=== PATIENT | female | born 1950 | race Caucasian/White ===

== ENCOUNTER 2016-04-02 11:15 | Inpatient (IN) | payer OTHER ==
[2016-04-02 12:20] LABS: % IMMATURE GRANULYOCYTES 0.5 % (0.0-1.1); ABSOLUTE IMMATURE GRANULOCYTES 0.03 10^3/uL (0.00-0.10); ADD DIFF? NO; ADD MORPH? NO; ADD SCAN? NO; ATYPICAL LYMPHOCYTE FLAG 0 (0-99); FRAGMENT RBC FLAG 10 (0-99); HEMATOCRIT 45.7 % (38.0-47.0); HEMOGLOBIN 15.2 g/dL (12.6-16.3); LEFT SHIFT FLG 0 (0-99); LIPEMIA HEMOLYSIS FLAG 80 (0-99); MEAN CELL HEMOGLOBIN 28.6 pg (27.9-34.1); MEAN CELL HEMOGLOBIN CONCENTR. 33.3 g/dL (32.4-36.7); MEAN CELL VOLUME 85.9 fL (81.5-99.8); MEAN PLATELET VOLUME 9.6 fL (8.7-11.7); PLATELET CLUMPS FLAG 0 (0-99); PLATELET COUNT 237 10^3/uL (150-400); RED BLOOD CELL COUNT 5.32 10^6/uL (4.18-5.33); RED CELL DISTRIBUTION WIDTH 13.5 % (11.5-15.2)
[2016-04-02 12:34] LABS: ANION GAP 10 mEq/L (8-16); CALCIUM 9.7 mg/dL (8.5-10.4); CARBON DIOXIDE 26 mEq/l (22-31); CHLORIDE 109 mEq/L (97-110); CREATININE 0.7 mg/dL (0.6-1.0); GLOMERULAR FILTRATION RATE > 60; GLUCOSE 77 mg/dL (70-100); POTASSIUM 4.7 mEq/L (3.5-5.2); SODIUM 145 mEq/L (134-144)
[2016-04-02 12:38] LABS: INR 0.93 (0.83-1.16); PROTIME(PATIENT) 12.4 SEC (12.0-15.0)
[2016-04-02 12:39] LABS: APTT 26.6 SEC (23.0-38.0)
[2016-04-02] MEDS ORDERED: MIDAZOLAM 2 MG/2 ML VIAL ONE (12:51)
[2016-04-02] MEDS ORDERED: CEFAZOLIN 2 GM/DEXTROSE/100 ML BAG IV ONE (12:52)
[2016-04-02] MEDS ORDERED: PROPOFOL/EMULSION 500 MG/50 ML BOTTLE IV ONE (13:01)
[2016-04-02] MEDS ORDERED: LIDOCAINE 2% 5 ML SDV ONE ×2 (13:03)
[2016-04-02] MEDS ORDERED: SUCCINYLCHOLINE CHLORIDE*ANESTHESIA ONLY*200 MG/10 ML SYR IVP ONE (13:03)
--- NOTE | 2016-04-02 13:17 | CPEKG ---
Heart Rate: 68 RR Interval: 882 P-R Interval: 160 QRSD Interval: 94 QT Interval: 420 QTC Interval: 447 QRS Brodnax: -27 T Wave Brodnax: 19 EKG Severity - ABNORMAL ECG - EKG Impression: ATRIAL-PACED RHYTHM EKG Impression: BORDERLINE LEFT AXIS DEVIATION EKG Impression: BORDERLINE T ABNORMALITIES, ANTERIOR LEADS Electronically Signed By: Luis Marti 02-Apr-2016 16:54:24
[2016-04-02] MEDS ORDERED: fentaNYL 100 MCG/2 ML INJ ONE ×3 (13:29→17:42)
[2016-04-02] MEDS ORDERED: ceFAZolin 2 GM/DEXTROSE 100 ML IV ONE (13:30)
[2016-04-02] MEDS ORDERED: epHEDrine SULFATE 10 MG/ML SYR ONE ×2 (13:58→14:10)
[2016-04-02] MEDS ORDERED: ONDANSETRON 4 MG/2 ML VIAL ONE (14:03)
[2016-04-02] MEDS ORDERED: DEXAMETHASONE 4 MG/ML VIAL ONE ×2 (14:03)
[2016-04-02] MEDS ORDERED: HEPARIN 10,000 UNIT/10 ML MDV ONE (16:36)
[2016-04-02] MEDS ORDERED: IOPAMIDOL (ISOVUE-300) 100 ML BTL IV ONE (16:36)
--- NOTE | 2016-04-02 17:29 | DX ---
AP Portable Chest on April 02, 2016 Indication: Preoperative evaluation. Comparison: November 14, 2014. Findings: Left subclavian pacemaker leads are unchanged. Mild amount of atelectasis or scar in the zac ng bases are unchanged. Lungs are otherwise clear. No developing mass or consolidation. Impression: No acute cardiopulmonary process.
[2016-04-02] MEDS: fentaNYL 100 MCG/2 ML INJ IVP PRN ×3 (18:00→22:13)
[2016-04-02] MEDS ORDERED: fentaNYL 100 MCG/2 ML INJ IVP PRN (18:14)
--- NOTE | 2016-04-02 18:33 | IR ---
Infrarenal Aortic Stent-graft Placement Bilateral Kissing Iliac Stent Placement Indication: High-grade aortic stenosis by plaque. High-grade left iliac stenosis. Bilateral leg pain . Informed consent: Obtained from the patient. Risks and benefits were discussed. Crosscutting Measure: Patient's current list of medications including all known prescriptions, over- the-counters, herbals, and vitamin/mineral/dietary supplements are reviewed. Medications' name, dosa ge, frequency, and route of administration are confirmed. Patient is a non-smoker. Prophylactic Antibiotic: Ancef 2 grams was ordered and administered for antimicrobial prophylaxis. Discontinuation of Prophylactic Antibiotic: Prophylactic antibiotic was given within 4 hours prior t o incision. There was an order to discontinue the antibiotic within 24 hours of procedure end time. VTE Prophylaxis: VTE prophylaxis is not medically necessary for this procedure. Technique: Patient is placed in supine position. A "timeout" procedure was performed to identify the correct patient and the correct procedure. 1% Xylocaine was used for local anesthetic. All elements of maximal sterile barrier technique including cap, mask, sterile gown, sterile gloves, large steril e sheet, hand hygiene, and 2% chlorhexidine for cutaneous antisepsis, followed. When ultrasound is u sed, sterile gel and probe covers are used. Ultrasound evaluation of potential access site was performed. After successfully identifying a patent vessel, ultrasound guidance was used to puncture the vessel. A permanent recording was created for t he patient's record. When ultrasound is used, sterile gel and probe covers are used. Right common femoral artery is accessed under ultrasound guidance at 12 o'clock using micropuncture n eedle. Two Preclose devices were subsequently deployed, one at 10 o'clock, one at 2 o'clock. Left common femoral artery was then accessed under ultrasound guidance using a micropuncture needle, followed by [place] wire and micropuncture sheath. 0.035 wire is advanced. 6-Danish vascular sheath is a dvanced. Difficulties are encountered at the aortic plaque and the left iliac plaque, respectively, in terms o f advancing wires. 12-Danish sheath is advanced on the right without difficulty. Bentson wire was able to be advanced ac ross the plaque into supra-abdominal aorta. Multisidehole pigtail catheter is advanced. Aortogram is performed, showing the high-grade stenosis in the midabdominal aorta, and a moderate to high-grade st enosis at the left proximal common iliac artery. The sheath, 12-Danish, on the right, is essentially occlusive. The pigtail catheter is removed over Lunderquist wire. Over Glidewire and Glidecatheter, contralatera l limb is accessed. The 12-Danish right-sided sheath is exchanged for a 16-Danish sheath advanced to upper external iliac artery. A 20 x 20 x 82 mm aortic tube graft is chosen. This is loaded, and easily advanced across aortic sten osis, and subsequently deployed along the infrarenal aorta. Post deployment angioplasty is performed using Reliant balloon. Next, bilateral atrium stents are loaded, 9 x 38 mm on the left, 8 x 38 mm on the right. Both stents are deployed simultaneously over insufflator. Pigtail is placed back up into abdominal aorta, and com pletion angiogram is performed in multiple projections. This shows satisfactory opening of the aortic stenosis as well as the left proximal iliac stenosis. The Precloses on the right maintain hemostasis fairly easily. The left groin access is closed by Star Close device, and there is a hematoma at the end of that on the left. Patient tolerated the procedure well. Fluoroscopy: 8.4 minutes, 14 images. Medication: General anesthesia. Impression: 1. Aortic tube graft placed into infrarenal aorta, opening the tight aortic stenosis. 2. Bilateral iliac kissing stent placement as above, resolving the left common iliac stenosis. 3. Bounding 2+ dorsalis pedis pulses after the case. Plan: Overnight ICU monitor.
--- NOTE | 2016-04-02 18:33 | IR ---
Infrarenal Aortic Stent-graft Placement Bilateral Kissing Iliac Stent Placement Indication: High-grade aortic stenosis by plaque. High-grade left iliac stenosis. Bilateral leg pain . Informed consent: Obtained from the patient. Risks and benefits were discussed. Crosscutting Measure: Patient's current list of medications including all known prescriptions, over- the-counters, herbals, and vitamin/mineral/dietary supplements are reviewed. Medications' name, dosa ge, frequency, and route of administration are confirmed. Patient is a non-smoker. Prophylactic Antibiotic: Ancef 2 grams was ordered and administered for antimicrobial prophylaxis. Discontinuation of Prophylactic Antibiotic: Prophylactic antibiotic was given within 4 hours prior t o incision. There was an order to discontinue the antibiotic within 24 hours of procedure end time. VTE Prophylaxis: VTE prophylaxis is not medically necessary for this procedure. Technique: Patient is placed in supine position. A "timeout" procedure was performed to identify the correct patient and the correct procedure. 1% Xylocaine was used for local anesthetic. All elements of maximal sterile barrier technique including cap, mask, sterile gown, sterile gloves, large steril e sheet, hand hygiene, and 2% chlorhexidine for cutaneous antisepsis, followed. When ultrasound is u sed, sterile gel and probe covers are used. Ultrasound evaluation of potential access site was performed. After successfully identifying a patent vessel, ultrasound guidance was used to puncture the vessel. A permanent recording was created for t he patient's record. When ultrasound is used, sterile gel and probe covers are used. Right common femoral artery is accessed under ultrasound guidance at 12 o'clock using micropuncture n eedle. Two Preclose devices were subsequently deployed, one at 10 o'clock, one at 2 o'clock. Left common femoral artery was then accessed under ultrasound guidance using a micropuncture needle, followed by Justin wire and micropuncture sheath. 0.035 wire is advanced. 6-Samoan vascular sheath is a dvanced. Difficulties are encountered at the aortic plaque and the left iliac plaque, respectively, in terms o f advancing wires. 12-Samoan sheath is advanced on the right without difficulty. Bentson wire was able to be advanced ac ross the plaque into supra-abdominal aorta. Multisidehole pigtail catheter is advanced. Aortogram is performed, showing the high-grade stenosis in the midabdominal aorta, and a moderate to high-grade st enosis at the left proximal common iliac artery. The sheath, 12-Samoan, on the right, is essentially occlusive. The pigtail catheter is removed over Lunderquist wire. Over Glidewire and Glidecatheter, contralatera l limb is accessed. The 12-Samoan right-sided sheath is exchanged for a 16-Samoan sheath advanced to upper external iliac artery. A 20 x 20 x 82 mm aortic tube graft is chosen. This is loaded, and easily advanced across aortic sten osis, and subsequently deployed along the infrarenal aorta. Post deployment angioplasty is performed using Reliant balloon. Next, bilateral atrium stents are loaded, 9 x 38 mm on the left, 8 x 38 mm on the right. Both stents are deployed simultaneously over insufflator. Pigtail is placed back up into abdominal aorta, and com pletion angiogram is performed in multiple projections. This shows satisfactory opening of the aortic stenosis as well as the left proximal iliac stenosis. The Precloses on the right maintain hemostasis fairly easily. The left groin access is closed by Star Close device, and there is a hematoma at the end of that on the left. Patient tolerated the procedure well. Fluoroscopy: 8.4 minutes, 14 images. Medication: General anesthesia. Impression: 1. Aortic tube graft placed into infrarenal aorta, opening the tight aortic stenosis. 2. Bilateral iliac kissing stent placement as above, resolving the left common iliac stenosis. 3. Bounding 2+ dorsalis pedis pulses after the case. Plan: Overnight ICU monitor.
--- NOTE | 2016-04-02 18:33 | IR ---
Infrarenal Aortic Stent-graft Placement Bilateral Kissing Iliac Stent Placement Indication: High-grade aortic stenosis by plaque. High-grade left iliac stenosis. Bilateral leg pain . Informed consent: Obtained from the patient. Risks and benefits were discussed. Crosscutting Measure: Patient's current list of medications including all known prescriptions, over- the-counters, herbals, and vitamin/mineral/dietary supplements are reviewed. Medications' name, dosa ge, frequency, and route of administration are confirmed. Patient is a non-smoker. Prophylactic Antibiotic: Ancef 2 grams was ordered and administered for antimicrobial prophylaxis. Discontinuation of Prophylactic Antibiotic: Prophylactic antibiotic was given within 4 hours prior t o incision. There was an order to discontinue the antibiotic within 24 hours of procedure end time. VTE Prophylaxis: VTE prophylaxis is not medically necessary for this procedure. Technique: Patient is placed in supine position. A "timeout" procedure was performed to identify the correct patient and the correct procedure. 1% Xylocaine was used for local anesthetic. All elements of maximal sterile barrier technique including cap, mask, sterile gown, sterile gloves, large steril e sheet, hand hygiene, and 2% chlorhexidine for cutaneous antisepsis, followed. When ultrasound is u sed, sterile gel and probe covers are used. Ultrasound evaluation of potential access site was performed. After successfully identifying a patent vessel, ultrasound guidance was used to puncture the vessel. A permanent recording was created for t he patient's record. When ultrasound is used, sterile gel and probe covers are used. Right common femoral artery is accessed under ultrasound guidance at 12 o'clock using micropuncture n eedle. Two Preclose devices were subsequently deployed, one at 10 o'clock, one at 2 o'clock. Left common femoral artery was then accessed under ultrasound guidance using a micropuncture needle, followed by [place] wire and micropuncture sheath. 0.035 wire is advanced. 6-Dominican vascular sheath is a dvanced. Difficulties are encountered at the aortic plaque and the left iliac plaque, respectively, in terms o f advancing wires. 12-Dominican sheath is advanced on the right without difficulty. Bentson wire was able to be advanced ac ross the plaque into supra-abdominal aorta. Multisidehole pigtail catheter is advanced. Aortogram is performed, showing the high-grade stenosis in the midabdominal aorta, and a moderate to high-grade st enosis at the left proximal common iliac artery. The sheath, 12-Dominican, on the right, is essentially occlusive. The pigtail catheter is removed over Lunderquist wire. Over Glidewire and Glidecatheter, contralatera l limb is accessed. The 12-Dominican right-sided sheath is exchanged for a 16-Dominican sheath advanced to upper external iliac artery. A 20 x 20 x 82 mm aortic tube graft is chosen. This is loaded, and easily advanced across aortic sten osis, and subsequently deployed along the infrarenal aorta. Post deployment angioplasty is performed using Reliant balloon. Next, bilateral atrium stents are loaded, 9 x 38 mm on the left, 8 x 38 mm on the right. Both stents are deployed simultaneously over insufflator. Pigtail is placed back up into abdominal aorta, and com pletion angiogram is performed in multiple projections. This shows satisfactory opening of the aortic stenosis as well as the left proximal iliac stenosis. The Precloses on the right maintain hemostasis fairly easily. The left groin access is closed by Star Close device, and there is a hematoma at the end of that on the left. Patient tolerated the procedure well. Fluoroscopy: 8.4 minutes, 14 images. Medication: General anesthesia. Impression: 1. Aortic tube graft placed into infrarenal aorta, opening the tight aortic stenosis. 2. Bilateral iliac kissing stent placement as above, resolving the left common iliac stenosis. 3. Bounding 2+ dorsalis pedis pulses after the case. Plan: Overnight ICU monitor.
[2016-04-02] MEDS: NS 1,000 ML IV SCH (18:52)
[2016-04-02] MEDS: oxyCODONE IR 5 MG TAB PO PRN (19:00)
[2016-04-02 19:43] LABS: HEMATOCRIT 42.5 % (38.0-47.0); HEMOGLOBIN 13.6 g/dL (12.6-16.3)
[2016-04-02 23:34] LABS: HEMATOCRIT 40.9 % (38.0-47.0); HEMOGLOBIN 13.2 g/dL (12.6-16.3)
[2016-04-03] MEDS: oxyCODONE IR 5 MG TAB PO PRN ×2 (00:33→18:15)
[2016-04-03] MEDS: NS 1,000 ML IV SCH (05:53)
[2016-04-03 06:06] LABS: HEMATOCRIT 38.6 % (38.0-47.0); HEMOGLOBIN 12.4 g/dL (12.6-16.3)
[2016-04-03] MEDS: fentaNYL 100 MCG/2 ML INJ IVP PRN ×3 (08:06→13:44)
[2016-04-03] MEDS ORDERED: NON-FORMULARY NEW DRUG (Rosuvastatin Calcium [Crestor 5mg] 5 MG) PO SCH (09:00)
[2016-04-03 10:12] LABS: HEMATOCRIT 36.6 % (38.0-47.0); HEMOGLOBIN 12.3 g/dL (12.6-16.3)
[2016-04-03] MEDS: ASPIRIN 81 MG CHEWABLE TAB PO SCH (10:49)
[2016-04-03] MEDS: METOPROLOL SUCCINATE XR 25 MG TAB PO SCH (10:49)
[2016-04-03] MEDS: ROSUVASTATIN CALCIUM 10 MG TAB PO SCH (10:50)
--- NOTE | 2016-04-03 11:20 | SOAPPROG ---
SOAP Progress Note Assessment/Plan: Assessment: S/P tube graft repair of tight aortic stenosis, and kissing stenting of iliac arteries for critical LT DEVI stenosis. High LT groin stick because of very high biforcation, at risk for retroperitoneal bleed. Plan: 1. Serial H/H 2. NCCT abd/pel tonight. 3. Fem stop on LT groin. 4. D/W family and patient. 04/03/16 11:08 Subjective: Back pain. Hematoma at LT groin. Relieved that procedure o/w went well. Objective: Vital Signs Temp Pulse Resp BP Pulse Ox 36.8 C 77 11 L 117/55 L 94 04/03/16 08:00 04/03/16 11:00 04/03/16 11:00 04/03/16 11:00 04/03/16 11:00 Laboratory Results 04/03/16 10:06 04/02/16 12:00 04/02/16 04/03/16 04/04/16 05:59 05:59 05:59 Intake Total 1339 Output Total 750 Balance 589 PT 12.4 SEC (12.0-15.0) 04/02/16 12:00 INR 0.93 (0.83-1.16) 04/02/16 12:00 2+ bounding pedal pulses. LT groin hematoma not externally visible or significantly palpable, but HCT decreasing. RT groin clean. ICD10 Worksheet Patient Problems: Problems Problem Status Diagnosed Iliac artery bleed, left Acute Iliac artery stenosis, left Acute Stenosis of infrarenal abdominal aorta due to arteriosclerosis Acute - ICD10 Problem Qualifiers (1) Stenosis of infrarenal abdominal aorta due to arteriosclerosis (2) Iliac artery stenosis, left (3) Iliac artery bleed, left
--- NOTE | 2016-04-03 11:26 | SOAPPROG ---
SOAP Progress Note Assessment/Plan: Assessment: S/P tube graft repair of tight aortic stenosis, and kissing stenting of iliac arteries for critical LT DEVI stenosis. High LT groin stick because of very high biforcation, at risk for retroperitoneal bleed. Plan: 1. Serial H/H 2. NCCT abd/pel tonight. 3. Fem stop on LT groin. 4. D/W family and patient. 04/03/16 11:08 04/03/16 11:24 1. Tightened up femstop 2. Patient likely will have more pain because of the above. 3. Likely will take patient back to IR to angio LT FA; covered stent if needed. 4. NPO this am. 5. Discussed with Dr. Perales. May need to do radial approach. Subjective: Fem stop loose on groin. 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 Objective: Vital Signs Temp Pulse Resp BP Pulse Ox 36.8 C 77 11 L 117/55 L 94 04/03/16 08:00 04/03/16 11:00 04/03/16 11:00 04/03/16 11:00 04/03/16 11:00 Laboratory Results 04/03/16 10:06 04/02/16 12:00 04/02/16 04/03/16 04/04/16 05:59 05:59 05:59 Intake Total 1339 Output Total 750 Balance 589 PT 12.4 SEC (12.0-15.0) 04/02/16 12:00 INR 0.93 (0.83-1.16) 04/02/16 12:00 LT groin very tender to touch, but loose fem stop not really clinically beneficial. Serial H/H noted. Pulses unchanged. CT shows some retroperitoneal bleed tracking laterally up the abd. Vitals stable. ICD10 Worksheet Patient Problems: Problems Problem Status Diagnosed Iliac artery bleed, left Acute Iliac artery stenosis, left Acute Stenosis of infrarenal abdominal aorta due to arteriosclerosis Acute - ICD10 Problem Qualifiers (1) Stenosis of infrarenal abdominal aorta due to arteriosclerosis (2) Iliac artery stenosis, left (3) Iliac artery bleed, left
--- NOTE | 2016-04-03 11:34 | SOAPPROG ---
SOAP Progress Note Assessment/Plan: Assessment: S/P tube graft repair of tight aortic stenosis, and kissing stenting of iliac arteries for critical LT DEVI stenosis. High LT groin stick because of very high biforcation, at risk for retroperitoneal bleed. Plan: 1. Serial H/H 2. NCCT abd/pel tonight. 3. Fem stop on LT groin. 4. D/W family and patient. 04/03/16 11:08 04/03/16 11:24 1. Tightened up femstop 2. Patient likely will have more pain because of the above. 3. Likely will take patient back to IR to angio LT FA; covered stent if needed. 4. NPO this am. 5. Discussed with Dr. Perales. May need to do radial approach. 04/03/16 11:[address] Perales. Patient likely equilibrating. 2. Will continue with serial H/H, but will hold off taking back to angio. 3. Abd pain likely duel to shifting fem stop, now with increased pressure. Pain control to keep patient comfortable. 4. Will keep femstop on till next hct check. 04/03/16 11:35 Subjective: Increasing abd pain. No change in vitals. Objective: Vital Signs Temp Pulse Resp BP Pulse Ox 36.8 C 77 11 L 117/55 L 94 04/03/16 08:00 04/03/16 11:00 04/03/16 11:00 04/03/16 11:00 04/03/16 11:00 Laboratory Results 04/03/16 10:06 04/02/16 12:00 04/02/16 04/03/16 04/04/16 05:59 05:59 05:59 Intake Total 1339 Output Total 750 Balance 589 PT 12.4 SEC (12.0-15.0) 04/02/16 12:00 INR 0.93 (0.83-1.16) 04/02/16 12:00 Continued slow drop in Hct, but Hgb relatively stable. New CT obtained, showing if anything improved amount of bleed. ICD10 Worksheet Patient Problems: Problems Problem Status Diagnosed Iliac artery bleed, left Acute Iliac artery stenosis, left Acute Stenosis of infrarenal abdominal aorta due to arteriosclerosis Acute - ICD10 Problem Qualifiers (1) Stenosis of infrarenal abdominal aorta due to arteriosclerosis (2) Iliac artery stenosis, left (3) Iliac artery bleed, left
[2016-04-03 14:14] LABS: HEMATOCRIT 36.1 % (38.0-47.0); HEMOGLOBIN 11.7 g/dL (12.6-16.3)
--- NOTE | 2016-04-03 15:23 | SOAPPROG ---
SOAP Progress Note Assessment/Plan: Assessment: S/P tube graft repair of tight aortic stenosis, and kissing stenting of iliac arteries for critical LT DEVI stenosis. High LT groin stick because of very high biforcation, at risk for retroperitoneal bleed. Plan: 1. Serial H/H 2. NCCT abd/pel tonight. 3. Fem stop on LT groin. 4. D/W family and patient. 04/03/16 11:08 04/03/16 11:24 1. Tightened up femstop 2. Patient likely will have more pain because of the above. 3. Likely will take patient back to IR to angio LT FA; covered stent if needed. 4. NPO this am. 5. Discussed with Dr. Perales. May need to do radial approach. 04/03/16 11:[address] Perales. Patient likely equilibrating. 2. Will continue with serial H/H, but will hold off taking back to angio. 3. Abd pain likely duel to shifting fem stop, now with increased pressure. Pain control to keep patient comfortable. 4. Will keep femstop on till next hct check. 04/03/16 11:35 04/03/16 15:23 DC femstop. OOB as tolerated. Subjective: No change clinically. Objective: Vital Signs Temp Pulse Resp BP Pulse Ox 36.8 C 74 12 110/57 L 96 04/03/16 13:00 04/03/16 14:00 04/03/16 14:00 04/03/16 14:00 04/03/16 14:00 Laboratory Results 04/03/16 13:50 04/02/16 12:00 04/02/16 04/03/16 04/04/16 05:59 05:59 05:59 Intake Total 1339 Output Total 750 Balance 589 PT 12.4 SEC (12.0-15.0) 04/02/16 12:00 INR 0.93 (0.83-1.16) 04/02/16 12:00 ICD10 Worksheet Patient Problems: Problems Problem Status Diagnosed Iliac artery bleed, left Acute Iliac artery stenosis, left Acute Stenosis of infrarenal abdominal aorta due to arteriosclerosis Acute - ICD10 Problem Qualifiers (1) Stenosis of infrarenal abdominal aorta due to arteriosclerosis (2) Iliac artery stenosis, left (3) Iliac artery bleed, left
--- NOTE | 2016-04-03 15:31 | CT ---
CT Scan of the Abdomen and Pelvis (Without IV Contrast) Clinical Indications: Continued decreasing hematocrit. Now complaining of abdominal pain. Comparison: CT scan April 02, 2016, 4 hour Technique: No intravenous contrast was given. Multidetector helical CT imaging is performed from th e diaphragm to the symphysis pubis. Dose reduction techniques were utilized. Findings: The FemoStop is now pressurized in the left lower quadrant. The amount of hematoma is not increased. There is change in location, from more of a pair pubic area, down into the labial region, rather than the left para iliac region. There is no further extension north in the retroperitoneum. The stent-graft is otherwise unchanged. There is contrast in the gallbladder from the procedure. Rest of the scan is unchanged. Impression: If anything, the amount of hematoma may have been improved. Attention: This examination does not use radiographic contrast, and as such, provides only a limite d evaluation of the abdomen, pelvis, and retroperitoneum. If there is further clinical suspicion for pathological conditions, a complete CT evaluation of the abdomen and pelvis utilizing intravenous, o ral, and rectal contrast should be considered.
--- NOTE | 2016-04-03 15:39 | CT ---
CT Scan of the Abdomen and Pelvis (Without IV Contrast) Clinical Indications: Hematoma at the left groin. Rule out retroperitoneal bleed. Technique: No intravenous contrast was given. Multidetector helical CT imaging is performed from th e diaphragm to the symphysis pubis. Dose reduction techniques were utilized. Findings: There is indeed a retroperitoneal hematoma dissecting from the left inguinal area downward s towards the pubic area, and upwards towards the flank. It is consistent with the amount of droppin g hematocrit. Hsu catheter is in good position. The stent-graft and the iliac limbs are in good p osition, patent, without kink or compression from a noncontrast evaluation standpoint. Multiple diverticula at the descending colon and sigmoid colon are noted. The patient has bilateral atelectasis. Cardiac pacemaker leads are noted. No ascites or pleural effusion. Impressions 1. Left retroperitoneal hematoma consistent with dropping hematocrit. It is mild to moderate. 2. Bilateral atelectasis.
[2016-04-03 17:30] LABS: HEMATOCRIT 35.9 % (38.0-47.0); HEMOGLOBIN 11.6 g/dL (12.6-16.3); MEAN CELL HEMOGLOBIN 28.5 pg (27.9-34.1); MEAN CELL HEMOGLOBIN CONCENTR. 32.3 g/dL (32.4-36.7); MEAN CELL VOLUME 88.2 fL (81.5-99.8); RED BLOOD CELL COUNT 4.07 10^6/uL (4.18-5.33); RED CELL DISTRIBUTION WIDTH 13.7 % (11.5-15.2)
[2016-04-03 17:52] LABS: ANION GAP 8 mEq/L (8-16); CARBON DIOXIDE 27 mEq/l (22-31); CHLORIDE 104 mEq/L (97-110); CREATININE 0.7 mg/dL (0.6-1.0); GLOMERULAR FILTRATION RATE > 60; GLUCOSE 135 mg/dL (70-100); POTASSIUM 4.3 mEq/L (3.5-5.2); SODIUM 139 mEq/L (134-144)
--- NOTE | 2016-04-03 18:37 | GCON ---
[f rep st] CONSULTATION CRITICAL CARE CONSULTATION DATE OF CONSULTATION: 04/03/2016 REASON FOR CONSULTATION: Intensive care unit evaluation in management following aortic stenting. HISTORY: The patient is a very pleasant 65-year-old, who was admitted yesterday for aortic stent and iliac stent placement for stenosis. This was done by Dr. Hanna. Her course has been complicated by a retroperitoneal bleed. She has had some pain related to this in the left back. Hematocrit has drop ped from 42 on admission to 36 currently. However, she is doing well. The pain is less. She compla ins of some numbness of the skin on the right leg from the hip to the knee laterally. She has a mild cough. PAST MEDICAL HISTORY: It is remarkable for chronic obstructive pulmonary disease, peripheral vascula r disease, and a pacemaker. MEDICATIONS ON ADMISSION: Calcitonin, gabapentin, aspirin, metoprolol, Crestor, and p.r.n. medicatio ns. SOCIAL HISTORY: The patient smoked cigarettes in the past. Significant alcohol is denied. She live s with her brother and helps care for him. He is in a wheelchair. DRUG ALLERGIES: Naproxen, sulfa, levofloxacin. FAMILY HISTORY: Noncontributory. REVIEW OF SYSTEMS: Ten-point review of systems negative, except as outlined above. PHYSICAL EXAMINATION: GENERAL: Reveals a pleasant woman, who is in no apparent distress. VITAL SIG NS: Blood pressure is 101/62, heart rate 77 with sinus rhythm on the monitor, respiratory rate is 14 , on 4 L of oxygen saturations are 95%. She is afebrile. HEENT: Unremarkable for lymphadenopathy o r thyromegaly. There is no jugular venous distention. CHEST: Clear. Breath sounds are diminished. HEART: Regular in rate and rhythm. There is a soft systolic murmur. No gallops are appreciated. P2 appears normal. ABDOMEN: Mildly distended and nontender. Bowel sounds are diminished, but pres ent. A Hsu catheter is in place with adequate urine output. NEUROLOGIC: Nonfocal. There is some subjective numbness in a dermatomal distribution over the lateral right upper extremity from the hip to the knee. She is oriented, appropriate. DATA REVIEWED: White blood cell count is 12,900, hematocrit 35.9. PT and PTT yesterday were normal. Basic metabolic panel is within normal limits. ASSESSMENT: 1. Status post aortic and femoral stents placed by Interventional Radiology. 2. Retroperitoneal hematoma. 3. Acute blood-loss anemia, mild so far. Hematocrit is being followed. No blood has been required. She is typed and crossed. 4. History of chronic obstructive pulmonary disease, on albuterol and Spiriva at home. No evidence of an exacerbation or significant problems at this time. PLAN: The patient will be kept in the intensive care unit. Serial hematocrits are being followed. Adequate pain control will be maintained. Her usual outpatient medications will be continued. Further plans and recommendations will be made based on her progress over the next 12-24 hours. /[id number]/MODL
[2016-04-03 22:05] LABS: HEMATOCRIT 34.5 % (38.0-47.0); HEMOGLOBIN 11.2 g/dL (12.6-16.3)
[2016-04-03] MEDS ORDERED: BISACODYL 10 MG SUPP PR PRN (22:19)
[2016-04-03] MEDS ORDERED: MAGNESIUM HYDROXIDE 30 ML UDCUP PO PRN (22:19)
[2016-04-03] MEDS ORDERED: POLYETHYLENE GLYCOL 3350 17 GM PKT PO PRN (22:19)
[2016-04-03] MEDS: SENNOSIDES/DOCUSATE SODIUM TAB PO SCH (22:29)
[2016-04-03] MEDS: ZOLPIDEM TARTRATE 5 MG TAB PO PRN (22:29)
[2016-04-04] MEDS: oxyCODONE IR 5 MG TAB PO PRN ×2 (00:07→20:51)
[2016-04-04 06:35] LABS: % IMMATURE GRANULYOCYTES 0.4 % (0.0-1.1); ABSOLUTE IMMATURE GRANULOCYTES 0.04 10^3/uL (0.00-0.10); ADD DIFF? NO; ADD MORPH? NO; ADD SCAN? NO; ATYPICAL LYMPHOCYTE FLAG 0 (0-99); FRAGMENT RBC FLAG 0 (0-99); HEMOGLOBIN 10.7 g/dL (12.6-16.3); LEFT SHIFT FLG 0 (0-99); LIPEMIA HEMOLYSIS FLAG 80 (0-99); MEAN CELL HEMOGLOBIN 28.9 pg (27.9-34.1); MEAN CELL HEMOGLOBIN CONCENTR. 32.4 g/dL (32.4-36.7); MEAN CELL VOLUME 89.2 fL (81.5-99.8); MEAN PLATELET VOLUME 9.8 fL (8.7-11.7); PLATELET CLUMPS FLAG 10 (0-99); PLATELET COUNT 168 10^3/uL (150-400)
[2016-04-04 07:06] LABS: ANION GAP 7 mEq/L (8-16); CARBON DIOXIDE 28 mEq/l (22-31); CHLORIDE 106 mEq/L (97-110); CREATININE 0.7 mg/dL (0.6-1.0); GLOMERULAR FILTRATION RATE > 60; GLUCOSE 98 mg/dL (70-100); POTASSIUM 4.2 mEq/L (3.5-5.2); SODIUM 141 mEq/L (134-144)
--- NOTE | 2016-04-04 09:45 | SOAPPROG ---
SOAP Progress Note Assessment/Plan: Assessment: S/P tube graft repair of tight aortic stenosis, and kissing stenting of iliac arteries for critical LT DEVI stenosis. High LT groin stick because of very high biforcation, at risk for retroperitoneal bleed. Plan: 1. Serial H/H 2. NCCT abd/pel tonight. 3. Fem stop on LT groin. 4. D/W family and patient. 04/03/16 11:08 04/03/16 11:24 1. Tightened up femstop 2. Patient likely will have more pain because of the above. 3. Likely will take patient back to IR to angio LT FA; covered stent if needed. 4. NPO this am. 5. Discussed with Dr. Perales. May need to do radial approach. 04/03/16 11:[address] Perales. Patient likely equilibrating. 2. Will continue with serial H/H, but will hold off taking back to angio. 3. Abd pain likely duel to shifting fem stop, now with increased pressure. Pain control to keep patient comfortable. 4. Will keep femstop on till next hct check. 04/03/16 11:35 04/03/16 15:23 DC femstop. OOB as tolerated. 04/04/16 09:[address] Thomas and Dr. Perales this AM. Consensus is to continue to watch. I also discussed the case with Dr. Ang, in case an angiogram is needed. Agree with the fact that the bleed is slow enough that the angiogram likely will be negative. We would only be looking for signs of intimal damage rather than active bleeding to direct covered stent placement. Appreciate Dr. Perales and Dr. Thomas's input. Discussed in detail with patient, who expressed understanding. Subjective: No change in pain in abd. C/O new onset mid sternal chest pain. Has been ambulating. Patient does not want fem-stop if at all possible. Objective: Vital Signs Temp Pulse Resp BP Pulse Ox 37.4 C 85 20 86/38 L 93 04/04/16 07:49 04/04/16 07:49 04/04/16 07:49 04/04/16 07:49 04/04/16 07:49 Laboratory Results 04/04/16 06:25 04/04/16 06:25 04/03/16 04/04/16 04/05/16 05:59 05:59 05:59 Intake Total 1339 1742 Output Total 750 1800 Balance 589 -58 PT 12.4 SEC (12.0-15.0) 04/02/16 12:00 INR 0.93 (0.83-1.16) 04/02/16 12:00 Bruise present at LT groin. Continued slow decrease in H/H noted. ICD10 Worksheet Patient Problems: Problems Problem Status Diagnosed Iliac artery bleed, left Acute Iliac artery stenosis, left Acute Stenosis of infrarenal abdominal aorta due to arteriosclerosis Acute - ICD10 Problem Qualifiers (1) Stenosis of infrarenal abdominal aorta due to arteriosclerosis (2) Iliac artery stenosis, left (3) Iliac artery bleed, left
[2016-04-04] MEDS: fentaNYL 100 MCG/2 ML INJ IVP PRN (09:51)
--- NOTE | 2016-04-04 10:18 | CPEKG ---
Heart Rate: 77 RR Interval: 779 P-R Interval: 140 QRSD Interval: 96 QT Interval: 360 QTC Interval: 408 QRS [place]: 4 T Wave [place]: 28 EKG Severity - ABNORMAL ECG - EKG Impression: ATRIAL-PACED RHYTHM EKG Impression: non-specific mild ST depression in anterior-lateral leads. Electronically Signed By: Luis Marti 04-Apr-2016 17:42:59
--- NOTE | 2016-04-04 10:29 | DX ---
AP Upright Portable Chest April 04, 2016 Clinical Indication: Chest pain and shortness of breath. Comparison: April 02, 2016. Findings: A dual-lead pacer is unchanged in position. There are some increasing atelectatic or consol idative changes at both bases. Heart size remains normal. Bones are grossly unremarkable. Impression: Increasing bibasilar atelectatic change or consolidation.
[2016-04-04] MEDS: METOPROLOL SUCCINATE XR 25 MG TAB PO SCH (11:13)
[2016-04-04] MEDS: ASPIRIN 81 MG CHEWABLE TAB PO SCH (11:13)
[2016-04-04] MEDS: ROSUVASTATIN CALCIUM 10 MG TAB PO SCH (11:13)
[2016-04-04] MEDS: SENNOSIDES/DOCUSATE SODIUM TAB PO SCH ×2 (11:14→20:50)
[2016-04-04] MEDS: NS 1,000 ML IV SCH (12:39)
[2016-04-04 14:24] LABS: HEMATOCRIT 33.8 % (38.0-47.0); HEMOGLOBIN 10.8 g/dL (12.6-16.3)
--- NOTE | 2016-04-04 16:02 | PDINTPN ---
Wire Stretcher Progress Note Assessment/Plan: Assessment: Status post aortic/left iliac stenting. Doing well. Good pulses and perfusion of the lower extremities. Retroperitoneal bleed. Appear stable. Acute blood-loss anemia. This afternoon's hematocrit is slightly better. Doubt significant ongoing bleeding. Discussed with Dr. Hanna. No plans on further studies at this time. COPD: Stable. No significant congestion or wheezing. Chest pain: Likely secondary to upper abdominal issues as epigastric tenderness seems to duplicate her pain. Metabolic: No issues identified. DVT prophylaxis: SCDs, ambulating, aspirin Plan: Continue observation in the intensive care unit. Continue present therapies. Can change status to step-down. Follow hematocrit. Subjective: Doing okay. Up in the chair. Still has some back pain. Breathing okay. Some anterior lower chest discomfort and some mild congestion. Objective: Vital Signs Temp Pulse Resp BP Pulse Ox 37 C 79 20 105/54 L 93 04/04/16 12:00 04/04/16 14:00 04/04/16 14:00 04/04/16 14:00 04/04/16 14:00 Laboratory Results 04/04/16 14:15 04/04/16 06:25 04/03/16 04/04/16 04/05/16 05:59 05:59 05:59 Intake Total 1339 1742 Output Total 750 1800 650 Balance 589 -58 -650 PT 12.4 SEC (12.0-15.0) 04/02/16 12:00 INR 0.93 (0.83-1.16) 04/02/16 12:00 Physical Exam - Physical Exam General Appearance: alert, no apparent distress EENT: other (Nasal cannula at 3-4 L.) Neck: normal inspection Respiratory: lungs clear (Somewhat coarse), decreased breath sounds (At bases), No rhonchi, No wheezing Cardiac/Chest: regular rate, rhythm, No gallop Abdomen: normal bowel sounds, soft, No non-tender (Tenderness in epigastric area seems to duplicate her chest pain.) Pelvic Exam: other (Hsu catheter out. Adequate urine output.) Skin: normal color, warm/dry Extremities: No pedal edema Neuro/Psych: no motor/sensory deficits, sensory deficit (Mild, right leg as previously noted), No cognition abnormalities ICD10 Worksheet Patient Problems: Problems Problem Status Diagnosed Iliac artery bleed, left Acute Iliac artery stenosis, left Acute Stenosis of infrarenal abdominal aorta due to arteriosclerosis Acute
[2016-04-04] MEDS: ZOLPIDEM TARTRATE 5 MG TAB PO PRN (23:30)
[2016-04-05 05:28] LABS: HEMATOCRIT 31.4 % (38.0-47.0); MEAN CELL HEMOGLOBIN 28.8 pg (27.9-34.1); MEAN CELL HEMOGLOBIN CONCENTR. 31.8 g/dL (32.4-36.7); MEAN CELL VOLUME 90.5 fL (81.5-99.8); RED BLOOD CELL COUNT 3.47 10^6/uL (4.18-5.33)
[2016-04-05] MEDS: SENNOSIDES/DOCUSATE SODIUM TAB PO SCH ×2 (08:46→20:42)
[2016-04-05] MEDS: ASPIRIN 81 MG CHEWABLE TAB PO SCH (08:46)
[2016-04-05] MEDS: ROSUVASTATIN CALCIUM 10 MG TAB PO SCH (08:46)
[2016-04-05] MEDS: METOPROLOL SUCCINATE XR 25 MG TAB PO SCH (08:46)
[2016-04-05] MEDS: oxyCODONE IR 5 MG TAB PO PRN ×2 (11:17→20:26)
[2016-04-05] MEDS: FERROUS SULFATE 325 MG TAB PO SCH ×2 (11:18→20:43)
--- NOTE | 2016-04-05 15:51 | PDINTPN ---
Host Coordinator Progress Note Assessment/Plan: Assessment: Status post aortic/left iliac stenting. Doing well. Good pulses and perfusion of the lower extremities. Retroperitoneal bleed. Appear stable. Acute blood-loss anemia. Hematocrit is slightly down today: 31.4, probably secondary to a equilibration. Doubt ongoing bleeding. No plans on further studies at this time. COPD: Stable. No significant congestion or wheezing. Chest pain: Likely secondary to upper abdominal issues as epigastric tenderness seems to duplicate her pain. Metabolic: No issues identified. DVT prophylaxis: SCDs, ambulating, aspirin Plan: Continue observation in the intensive care unit. Continue present therapies. Follow hematocrit. Subjective: Doing well. Persistent mild left groin/flank pain. Denies shortness of breath Objective: Vital Signs Temp Pulse Resp BP Pulse Ox 36.9 C 71 20 100/50 L 96 04/05/16 12:00 04/05/16 12:00 04/05/16 12:00 04/05/16 12:00 04/05/16 12:00 Laboratory Results 04/05/16 05:10 04/04/16 06:25 04/04/16 04/05/16 04/06/16 05:59 05:59 05:59 Intake Total 1742 1289 Output Total 1800 1400 Balance -58 -111 PT 12.4 SEC (12.0-15.0) 04/02/16 12:00 INR 0.93 (0.83-1.16) 04/02/16 12:00 Physical Exam - Physical Exam General Appearance: alert, no apparent distress EENT: other (Nasal cannula 4 L) Neck: normal inspection Respiratory: lungs clear, decreased breath sounds (At bases), rales (Few basilar rales, improve with the breast), No rhonchi, No wheezing Cardiac/Chest: regular rate, rhythm (Paced) Abdomen: non-tender (Mild epigastric tenderness), soft, No normal bowel sounds ( Decreased, present) Pelvic Exam: other (Hsu catheter removed) Skin: normal color, warm/dry Lymphatic: no adenopathy Extremities: other (Good pulses lower extremities, good color), No pedal edema Neuro/Psych: no motor/sensory deficits, No cognition abnormalities ICD10 Worksheet Patient Problems: Problems Problem Status Diagnosed Iliac artery bleed, left Acute Iliac artery stenosis, left Acute Stenosis of infrarenal abdominal aorta due to arteriosclerosis Acute
[2016-04-05 17:13] LABS: HEMATOCRIT 33.1 % (38.0-47.0); HEMOGLOBIN 10.3 g/dL (12.6-16.3)
[2016-04-05] MEDS: ZOLPIDEM TARTRATE 5 MG TAB PO PRN (23:16)
[2016-04-06] MEDS: oxyCODONE IR 5 MG TAB PO PRN ×3 (03:46→20:15)
[2016-04-06 04:30] LABS: HEMATOCRIT 32.3 % (38.0-47.0); HEMOGLOBIN 10.4 g/dL (12.6-16.3); MEAN CELL HEMOGLOBIN 28.6 pg (27.9-34.1); MEAN CELL HEMOGLOBIN CONCENTR. 32.2 g/dL (32.4-36.7); MEAN CELL VOLUME 88.7 fL (81.5-99.8); RED BLOOD CELL COUNT 3.64 10^6/uL (4.18-5.33); RED CELL DISTRIBUTION WIDTH 13.3 % (11.5-15.2)
[2016-04-06] MEDS: ROSUVASTATIN CALCIUM 10 MG TAB PO SCH (08:02)
[2016-04-06] MEDS: SENNOSIDES/DOCUSATE SODIUM TAB PO SCH ×2 (08:02→20:16)
[2016-04-06] MEDS: METOPROLOL SUCCINATE XR 25 MG TAB PO SCH (08:02)
[2016-04-06] MEDS: FERROUS SULFATE 325 MG TAB PO SCH ×2 (08:03→20:17)
[2016-04-06] MEDS: ASPIRIN 81 MG CHEWABLE TAB PO SCH (08:03)
[2016-04-06] MEDS: fentaNYL 100 MCG/2 ML INJ IVP PRN (15:18)
--- NOTE | 2016-04-06 17:01 | SOAPPROG ---
SOAP Progress Note Assessment/Plan: Assessment: 1. Mild lateral cutaneous nerve symptoms - R side. 2. Small L groin hematoma - hgb stable Plan: Anticipate d/c home in AM per Dr. Hanna. DW her nerve symptoms which are mild and will likely improve over next couple of weeks. 04/06/16 16:58 Subjective: Pt laying comfortably in bed Objective: Abdomen nontender to palpation R groin unremarkable. L groin minimally bruising Feet warm and dry Vital Signs Temp Pulse Resp BP Pulse Ox 37.3 C 73 18 93/47 L 94 04/06/16 15:41 04/06/16 15:41 04/06/16 15:41 04/06/16 15:41 04/06/16 15:41 Laboratory Results 04/06/16 03:48 04/04/16 06:25 04/05/16 04/06/16 04/07/16 05:59 05:59 05:59 Intake Total 1289 1169 300 Output Total 1400 400 Balance -111 769 300 PT 12.4 SEC (12.0-15.0) 04/02/16 12:00 INR 0.93 (0.83-1.16) 04/02/16 12:00 - Pending Discharge Pending Discharge Within 24 Hours: Yes Pending Discharge Date: 04/07/16 Pending Discharge Time: 11:00 ICD10 Worksheet Patient Problems: Problems Problem Status Diagnosed Iliac artery bleed, left Acute Iliac artery stenosis, left Acute Stenosis of infrarenal abdominal aorta due to arteriosclerosis Acute
[2016-04-06] MEDS: ZOLPIDEM TARTRATE 5 MG TAB PO PRN (20:16)
[2016-04-07] MEDS: oxyCODONE IR 5 MG TAB PO PRN ×4 (02:38→20:48)
[2016-04-07 04:56] LABS: HEMATOCRIT 29.5 % (38.0-47.0); HEMOGLOBIN 9.5 g/dL (12.6-16.3); MEAN CELL HEMOGLOBIN 28.8 pg (27.9-34.1); MEAN CELL HEMOGLOBIN CONCENTR. 32.2 g/dL (32.4-36.7); MEAN CELL VOLUME 89.4 fL (81.5-99.8); RED BLOOD CELL COUNT 3.3 10^6/uL (4.18-5.33); RED CELL DISTRIBUTION WIDTH 13.2 % (11.5-15.2)
--- NOTE | 2016-04-07 09:33 | SOAPPROG ---
SOAP Progress Note Assessment/Plan: Assessment: S/P tube graft repair of tight aortic stenosis, and kissing stenting of iliac arteries for critical LT DEVI stenosis. High LT groin stick because of very high biforcation, at risk for retroperitoneal bleed. Plan: 1. Serial H/H 2. NCCT abd/pel tonight. 3. Fem stop on LT groin. 4. D/W family and patient. 04/03/16 11:08 04/03/16 11:24 1. Tightened up femstop 2. Patient likely will have more pain because of the above. 3. Likely will take patient back to IR to angio LT FA; covered stent if needed. 4. NPO this am. 5. Discussed with Dr. Perales. May need to do radial approach. 04/03/16 11:[address] Perales. Patient likely equilibrating. 2. Will continue with serial H/H, but will hold off taking back to angio. 3. Abd pain likely duel to shifting fem stop, now with increased pressure. Pain control to keep patient comfortable. 4. Will keep femstop on till next hct check. 04/03/16 11:35 04/03/16 15:23 DC femstop. OOB as tolerated. 04/04/16 09:[address] Thomas and Dr. Perales this AM. Consensus is to continue to watch. I also discussed the case with Dr. Ang, in case an angiogram is needed. Agree with the fact that the bleed is slow enough that the angiogram likely will be negative. We would only be looking for signs of intimal damage rather than active bleeding to direct covered stent placement. Appreciate Dr. Perales and Dr. Thomas's input. Discussed in detail with patient, who expressed understanding. 04/07/16 09:31 1. HCT mostly stable. Prior to D/C, will get one more NCCT abd/pel to double check. 2. RT burning pain may be due to nerve pinch by pre-close device. 3. Anticipate pain from LT hematoma to take several weeks to resolve. 4. PT/OT eval today; 5. Bowel regiment 6. Anticipate D/C once cleared by PT/OT, and pending satisfactory CT result. Subjective: C/O severe burning pain RT groin; thought pain on LT would be gone by now. Objective: Vital Signs Temp Pulse Resp BP Pulse Ox 36.8 C 69 16 102/56 L 92 04/07/16 07:34 04/07/16 07:34 04/07/16 07:34 04/07/16 07:34 04/07/16 07:34 Laboratory Results 04/07/16 04:15 04/04/16 06:25 04/06/16 04/07/16 04/08/16 05:59 05:59 05:59 Intake Total 1169 700 Output Total 400 Balance 769 700 PT 12.4 SEC (12.0-15.0) 04/02/16 12:00 INR 0.93 (0.83-1.16) 04/02/16 12:00 Bruise over pubic area is soft. No significant externally palpable hematoma. Pulses intact. No pain on palpation on RT. No mass on RT. ICD10 Worksheet Patient Problems: Problems Problem Status Diagnosed Iliac artery bleed, left Acute Iliac artery stenosis, left Acute Stenosis of infrarenal abdominal aorta due to arteriosclerosis Acute - ICD10 Problem Qualifiers (1) Stenosis of infrarenal abdominal aorta due to arteriosclerosis (2) Iliac artery stenosis, left (3) Iliac artery bleed, left
[2016-04-07] MEDS: SENNOSIDES/DOCUSATE SODIUM TAB PO SCH ×2 (10:02→22:20)
[2016-04-07] MEDS: FERROUS SULFATE 325 MG TAB PO SCH ×2 (10:02→20:48)
[2016-04-07] MEDS: ROSUVASTATIN CALCIUM 10 MG TAB PO SCH (10:02)
[2016-04-07] MEDS: ASPIRIN 81 MG CHEWABLE TAB PO SCH (10:03)
[2016-04-07] MEDS: METOPROLOL SUCCINATE XR 25 MG TAB PO SCH (10:03)
[2016-04-07] MEDS: PREGABALIN 50 MG CAP PO SCH ×2 (10:08→20:48)
[2016-04-07] MEDS: LACTULOSE 20 GM/30 ML UDCUP PO PRN ×2 (11:09→15:55)
[2016-04-07] MEDS ORDERED: IOPAMIDOL (ISOVUE-370) 150 ML BTL IV ONE (12:14)
[2016-04-07] MEDS ORDERED: ONDANSETRON DISINTEGRATING 4 MG TAB PO PRN (15:34)
[2016-04-07] MEDS ORDERED: ONDANSETRON 4 MG/2 ML VIAL IVP PRN (15:35)
--- NOTE | 2016-04-07 16:56 | CT ---
CT Angiography of the Abdomen and Pelvis Clinical Indications: Continued dropping hematocrit. Probably delusional. Anticipating discharge t omorrow. Repeat evaluation just to double check prior to discharge. Technique: Thinly collimated multidetector helical data were obtained through the abdomen and pelvis during the administration of 100 mL of Isovue-370 IV contrast during the arterial phase of contrast enhancement. Repeat 5-mm images are obtained in venous phase. Images were then transferred to an in dependent workstation where multiplanar and three-dimensional reconstructions were performed by the r adiologist. Appropriate images were stored on PACS. Dose reduction techniques were utilized. Comparison: Noncontrast evaluation April 02, 2016, April 03, 2016. Findings CT Angiography: No extravasation. The amount of hematoma is decreased compared to the prior studies . No evidence for vessel irregularity. Stent-graft is patent. The moderate stenosis at the distal left common iliac artery and proximal lef t external iliac artery focally are again noted, without change. There is rapid antegrade flow to bi furcation vessels. Arterial phase evaluation of the visceral organs and the visceral vessels are oth erwise normal. CT Abdomen and Pelvis: Atelectasis in the lung bases are again noted, slightly increased compared to April 03. No effusion. No consolidation. The visualized solid and visceral organs are otherwise normal. Impressions 1. Improved hematoma. No evidence for active bleeding. 2. Slight worsening atelectasis. No pneumonia.
[2016-04-07] MEDS: ZOLPIDEM TARTRATE 5 MG TAB PO PRN (22:14)
[2016-04-08] MEDS: ROSUVASTATIN CALCIUM 10 MG TAB PO SCH (08:18)
[2016-04-08] MEDS: PREGABALIN 50 MG CAP PO SCH ×2 (08:19→20:11)
[2016-04-08] MEDS: oxyCODONE IR 5 MG TAB PO PRN ×3 (08:19→20:11)
[2016-04-08] MEDS: FERROUS SULFATE 325 MG TAB PO SCH ×2 (08:26→20:11)
[2016-04-08] MEDS: ASPIRIN 81 MG CHEWABLE TAB PO SCH (08:26)
[2016-04-08] MEDS: METOPROLOL SUCCINATE XR 25 MG TAB PO SCH (08:26)
[2016-04-08] MEDS: SENNOSIDES/DOCUSATE SODIUM TAB PO SCH ×2 (08:27→20:11)
--- NOTE | 2016-04-08 14:21 | SOAPPROG ---
SOARABELLA Progress Note Assessment/Plan: Assessment: S/P tube graft repair of tight aortic stenosis, and kissing stenting of iliac arteries for critical LT DEVI stenosis. High LT groin stick because of very high biforcation, at risk for retroperitoneal bleed. Plan: 1. Serial H/H 2. NCCT abd/pel tonight. 3. Fem stop on LT groin. 4. D/W family and patient. 04/03/16 11:08 04/03/16 11:24 1. Tightened up femstop 2. Patient likely will have more pain because of the above. 3. Likely will take patient back to IR to angio LT FA; covered stent if needed. 4. NPO this am. 5. Discussed with Dr. Perales. May need to do radial approach. 04/03/16 11:[address] Perales. Patient likely equilibrating. 2. Will continue with serial H/H, but will hold off taking back to angio. 3. Abd pain likely duel to shifting fem stop, now with increased pressure. Pain control to keep patient comfortable. 4. Will keep femstop on till next hct check. 04/03/16 11:35 04/03/16 15:23 DC femstop. OOB as tolerated. 04/04/16 09:[address] Thomas and Dr. Perales this AM. Consensus is to continue to watch. I also discussed the case with Dr. Ang, in case an angiogram is needed. Agree with the fact that the bleed is slow enough that the angiogram likely will be negative. We would only be looking for signs of intimal damage rather than active bleeding to direct covered stent placement. Appreciate Dr. Perales and Dr. Thomas's input. Discussed in detail with patient, who expressed understanding. 04/07/16 09:31 1. HCT mostly stable. Prior to D/C, will get one more NCCT abd/pel to double check. 2. RT burning pain may be due to nerve pinch by pre-close device. 3. Anticipate pain from LT hematoma to take several weeks to resolve. 4. PT/OT eval today; 5. Bowel regiment 6. Anticipate D/C once cleared by PT/OT, and pending satisfactory CT result. 04/08/16 14:21 1. Again reiterated importance of getting up and moving around to help healing. 2. RT groin pain: either lateral femoral cutaneous nerve, which would be very unusual from a percutaneous standpoint, or from LB, which is likely. This will take quite a while to resolve. This was again discussed with patient. 3. LT hematoma: essentially completely gone on CTA yesterday. 4. Lives with brother, who gets home health care. Will look into getting the same agency to go see her at home. 5. Patient working on getting a ride home no later than tomorrow. 6. D/C pending patient getting a ride. She lives in [place]. Subjective: Still having RT thigh burning pain. Lyrica "helped a bit." hasn't been moving much. Refused PT yesterday. Short walk with PT today. Wants to know if she can go home tomorrow instead of today. " I won't be able to get a ride at this hour." Objective: Vital Signs Temp Pulse Resp BP Pulse Ox 37.2 C 70 12 94/41 L 94 04/08/16 13:09 04/08/16 13:09 04/08/16 13:09 04/08/16 13:09 04/08/16 13:09 Laboratory Results 04/07/16 04:15 04/04/16 06:25 04/07/16 04/08/16 04/09/16 05:59 05:59 05:59 Intake Total 700 1150 Balance 700 1150 PT 12.4 SEC (12.0-15.0) 04/02/16 12:00 INR 0.93 (0.83-1.16) 04/02/16 12:00 No change in exam. - Pending Discharge Pending Discharge Within 24 Hours: Yes Pending Discharge Date: 04/09/16 Pending Discharge Time: 11:00 ICD10 Worksheet Patient Problems: Problems Problem Status Diagnosed Iliac artery bleed, left Acute Iliac artery stenosis, left Acute Stenosis of infrarenal abdominal aorta due to arteriosclerosis Acute - ICD10 Problem Qualifiers (1) Stenosis of infrarenal abdominal aorta due to arteriosclerosis (2) Iliac artery stenosis, left (3) Iliac artery bleed, left
--- NOTE | 2016-04-08 14:35 | PDIAF ---
- Diagnosis Diagnosis: Aortic Stenosis and PVD Code Status: Full Code - Medication Management Discharge Medications: Medications to Continue on Transfer RX: Ascorbic Acid [Vitamin C 500 mg (*)] 500 mg PO TID 03/28/16 [Last Taken 01/06] RX: Aspirin [Aspirin 81mg (*)] 81 mg PO DAILY 03/28/16 [Last Taken 04/02/16] RX: Calcium Carbonate [Tums 500MG (*)] 1,500 mg PO DAILY 03/28/16 [Last Taken ] RX: Cholecalciferol Vit D3 [Vitamin D3 (*)] 2,000 units PO DAILY 03/28/16 [Last Taken 04/01/16] RX: Metoprolol Succinate Xr [Toprol Xl 25 mg (*)] 25 mg PO DAILY 03/28/16 [Last Taken 04/02/16] RX: Rosuvastatin Calcium [Crestor 5mg] 5 mg PO DAILY 03/28/16 [Last Taken ] RX: Zolpidem Tartrate [Ambien] 10 mg PO HS PRN 03/28/16 [Last Taken 03/31/16] RX: tiZANidine HCL [Zanaflex] 4 mg PO TID PRN 03/28/16 [Last Taken 04/01/16] RX: Calcitonin [Fortical (*)] 200 units NASAL BID 04/02/16 [Last Taken 04/01/16] RX: Doxylamine Succinate [Unisom] 25 mg PO HS PRN 04/02/16 [Last Taken 04/01/16] RX: Gabapentin [Neurontin 300 MG (*)] 300 mg PO TID 04/02/16 [Last Taken ] RX: Triamcinolone 0.1% [Triamcinolone 0.1% Cream (*)] 1 cass TP BID PRN 04/02/16 [Last Taken Unknown] RX: Pregabalin [Lyrica 50mg (*)] 50 mg PO BID #30 cap 04/08/16 [Last Taken Unknown] RX: oxyCODONE IR [Oxycodone Ir (*)] 10 mg PO Q4HRS PRN #20 tab 04/08/16 [Last Taken Unknown] Discharge Medications: Refer to the Discharge Home Medication list for PRN reason. - Orders Services needed: Home Care, Registered Nurse, Physical Therapy Home Care Face to Face: I certify that this patient was under my care and that I had the required [id number] encounter meeting the encounter requirements on the discharge day. My findings support the fact that the patient is homebound as defined in CMS Chapter 7 Medicare Benefits Manual 30.1.1, The condition of the patient is such that there exists a normal inability to leave home and consequently, leaving home would require a considerable and taxing effort. Diet Recommendation: no restrictions on diet (Facilitate ambulation and return to normal activity functions.) - Follow Up Care Current Providers and Referrals: Jovanny Zamorano MD [Primary Care Provider] -
[2016-04-08] MEDS: ZOLPIDEM TARTRATE 5 MG TAB PO PRN (20:11)
[2016-04-09] MEDS: oxyCODONE IR 5 MG TAB PO PRN (05:23)
[2016-04-09 09:02] VITALS: BP 85/60; PULSE 74; RESP 14; TEMP 98.7; O2SAT 89
[2016-04-09] MEDS: PREGABALIN 50 MG CAP PO SCH (09:40)
[2016-04-09] MEDS: FERROUS SULFATE 325 MG TAB PO SCH (09:40)
[2016-04-09] MEDS: SENNOSIDES/DOCUSATE SODIUM TAB PO SCH (09:41)
[2016-04-09] MEDS: ASPIRIN 81 MG CHEWABLE TAB PO SCH (09:41)
[2016-04-09] MEDS: METOPROLOL SUCCINATE XR 25 MG TAB PO SCH (09:41)
[2016-04-09] MEDS: ROSUVASTATIN CALCIUM 10 MG TAB PO SCH (09:41)
== END 2016-04-09 12:12 | disposition home health service (06) | DRG 253 ==
LOC: FIMAGING 11:15 → F2N 16:01 → F2W 04-05 22:19
PROVIDERS: ADMIT Radiology Diagnostic Radiology; ATTEND Radiology Diagnostic Radiology
PROC: 047D3DZ Dilation of Left Common Iliac Artery with Intraluminal Device, Percutaneous Approach (ICD-10-PCS; principal; 2016-04-02)
PROC: 04703DZ Dilation of Abdominal Aorta with Intraluminal Device, Percutaneous Approach (ICD-10-PCS; principal; 2016-04-02)
PROC: 047C3DZ Dilation of Right Common Iliac Artery with Intraluminal Device, Percutaneous Approach (ICD-10-PCS; principal; 2016-04-02)
DX: I70.0 Atherosclerosis of aorta (principal); K91.841 Postprocedural hemorrhage of a digestive system organ or structure following other procedure; D62 Acute posthemorrhagic anemia; I70.8 Atherosclerosis of other arteries; J44.9 Chronic obstructive pulmonary disease, unspecified; I73.9 Peripheral vascular disease, unspecified; Z95.0 Presence of cardiac pacemaker; Z87.891 Personal history of nicotine dependence
CPT/HCPCS: 97116-GP; 97163-GP; 97165-GO; 97530-GO; 97530-GP; 97535-GO; C1725; C1758; C1760; C1769; C1874; C1892; C1894; G8978-GP-CM; G8979-GP-CI; G8980-GP-CI; G8987-GO-CK; G8988-GO-CI; G8989-GO-CI; J0330; J0690; J1100; J1644; J2250; J2405; J2704; J3010; Q9967

== ENCOUNTER → 2016-05-02 | Day surgery (SDC) | payer OTHER ==
[~2016-05-02] MED LIST: BUPIVACAINE 0.5% 30 ML SDV ONE; TRIAMCINOLONE ACETONIDE 200 MG/5 ML MDV IM ONE
--- NOTE | 2016-05-02 22:46 | IR ---
Fluoroscopy-Guided Inguinal Nerve Injection Interventional Consult Indication: Burning pain down the anterior right thigh after endovascular repair of aortic stenosis. Interestingly, the left side was the one that we had bleeding issues because of high bifurcation. The right one was a very straightforward percutaneous access, without any problems. Pain started a c ouple days after the procedure. She was on Lyrica during the hospital stay, which the patient says m maria l her crazy. Currently, the patient has significant difficulty standing on her feet for 7 to 8 hours a day for her job because of this burning sensation. It is severe at the proximal thigh and mild to moderate at t he distal to mid thigh. Physical Exam: There is no hematoma. No external abnormalities. Muscle tone is within normal limit s. Reflexes are normal. Informed Consent: Obtained from the patient. Risks and benefits were discussed. Cross Cutting Measure: Patient's current list of medications including all known prescriptions, over -the-counters, herbals, and vitamin/mineral/dietary supplements are reviewed. Medications' name, dos age, frequency, and route of administration are confirmed. Patient is a non-smoker. Prophylactic Antibiotic: Cefazolin was not ordered and administered for antimicrobial prophylaxis be cause it was not medically necessary. VTE Prophylaxis: There is not an order for VTE prophylaxis to be given within 24 hours of the proced ure end time. VTE prophylaxis was not given because it was not medically necessary. Technique: Patient is placed in supine position. A "timeout" procedure was performed to identify th e correct patient and the correct procedure. 1% Xylocaine was used for local anesthetic. All elemen ts of maximal sterile barrier technique, including cap, mask, sterile gown, sterile gloves, large enrico rile sheet, hand hygiene, and 2% chlorhexidine for cutaneous antisepsis, followed. Ultrasound evaluation of potential access site was performed. After successfully identifying a paten t vessel, ultrasound guidance was used to puncture the vessel. A permanent recording was created for the patient's record. When ultrasound is used, sterile gel and probe covers are used. Using combined ultrasound and fluoroscopy guidance, a 22-gauge spinal needle is seen inserted into th e medial aspect of the inguinal artery and nerve complex, as well as the superoanterior aspect of the femoral artery close to the previous location of percutaneous stent-graft access. A combination of 100 mg of Kenalog, 3 mL 1% Xylocaine, and 4 mL 0.5% bupivacaine were injected between the two spots. The patient tolerated the procedure well. Assessment: 1. I think the cause of the patient's burning sensation is most likely irritation of the femoral cut aneous nerve, either at the time of catheter insertion, or delayed because of scar formation. 2. Above nerve injection performed both as diagnostic and potentially therapeutic maneuver to see if this helps the patient. Plan: 1. A prescription of Neurontin was given to the patient. Detailed instructions were given to the jacky ordonez to titrate up to 1800 mg a day. 2. The patient is due back to see me in consultation in 2-3 weeks. By then, we should be able to ge t some sort of an assessment whether Neurontin, and today's injection, made any difference. 3. If it truly is femoral cutaneous nerve irritation/injury, that would take quite some time to heal but it would completely heal. Average time may be up to 6 months to a year. The above are discussed in detail with the patient. The patient expressed understanding. I will dic sweeney a letter for the patient's work to excuse her from prolonged standing because of these symptoms until we further evaluate and treat. Meanwhile, I have asked the patient to call Interventional Radi ology with any further issues prior to her next visit. Total akwe-hd-gscr consultation time today was 30 minutes.
== END | disposition home or self-care (01) ==
LOC: FIMAGING 11:22
PROVIDERS: ATTEND Radiology Diagnostic Radiology
PROC: 3E0T3BZ Introduction of Anesthetic Agent into Peripheral Nerves and Plexi, Percutaneous Approach (ICD-10-PCS; principal; 2016-05-02)
DX: M25.551 Pain in right hip (principal)
CPT/HCPCS: J3301